=== PATIENT | female | born 1940 | race Caucasian/White ===

== ENCOUNTER 2017-08-09 11:31 | Emergency (ER) | payer OTHER | END 2017-08-09 13:13 | disposition home or self-care (01) | LOC: EDH 11:31 | DX: S92.354A Nondisplaced fracture of fifth metatarsal bone, right foot, initial encounter for closed fracture (principal); I10 Essential (primary) hypertension; E03.9 Hypothyroidism, unspecified; Z90.49 Acquired absence of other specified parts of digestive tract; X58.XXXA Exposure to other specified factors, initial encounter; Y93.89 Activity, other specified; Y92.098 Other place in other non-institutional residence as the place of occurrence of the external cause; Y99.8 Other external cause status | CPT/HCPCS: 73610; 73630 ==

== ENCOUNTER 2019-07-14 06:28 | Emergency (ER) | payer OTHER ==
[2019-07-14] MEDS ORDERED: TETRACAINE HCL 0.5% 4 ML OPHTH SOLN ONE (07:20)
[2019-07-14] MEDS ORDERED: FLUORESCEIN SODIUM 1 STRIP STRIP ONE (07:20)
== END 2019-07-14 08:08 | disposition home or self-care (01) ==
LOC: EDH 06:28
DX: B02.22 Postherpetic trigeminal neuralgia (principal); H92.02 Otalgia, left ear; I10 Essential (primary) hypertension; E03.9 Hypothyroidism, unspecified; Z87.891 Personal history of nicotine dependence

== ENCOUNTER 2022-07-11 08:42 | Emergency (ER) | payer MEDICARE, OTHER ==
[~2022-07-11] VITALS: Ht 170.2 cm; Wt 74.8 kg
[2022-07-11] MEDS ORDERED: TETANUS/DIPHTHERIA TOXOID [ADULT] 0.5 ML VIAL IM SCH (11:00)
[2022-07-11 11:14] VITALS: BP 152/66
== END 2022-07-11 11:03 | disposition home or self-care (01) ==
LOC: EDH 08:42
DX: S60.222A Contusion of left hand, initial encounter (principal); S00.01XA Abrasion of scalp, initial encounter; M72.0 Palmar fascial fibromatosis [Dupuytren]; I10 Essential (primary) hypertension; Z90.49 Acquired absence of other specified parts of digestive tract; W19.XXXA Unspecified fall, initial encounter; Y93.01 Activity, walking, marching and hiking; Y92.89 Other specified places as the place of occurrence of the external cause; Y99.8 Other external cause status
CPT/HCPCS: 70450; 73130; 90471; 90714